=== PATIENT | male | born 2000 | race African-American/Black ===

== ENCOUNTER 2023-11-25 09:20 | Emergency (ER) | payer OTHER ==
[~2023-11-25] VITALS: Ht 193 cm; Wt 95.6 kg
[2023-11-25] MEDS ORDERED: IBUP-1022 PO (11:26)
[2023-11-25 11:52] VITALS: BP 118/65; TEMP 98; O2SAT 100
[2023-11-25 13:32] LABS: Trichomonas vaginalis (AMP) NOT DETECTED (NEGATIVE)
[2023-11-25 13:55] LABS: GC DNA AMPLIFICATION NEGATIVE (NEGATIVE)
== END 2023-11-25 11:53 | disposition home or self-care (01) ==
LOC: M ED 09:20
DX: N50.811 Right testicular pain (principal); N50.812 Left testicular pain; Z79.1 Long term (current) use of non-steroidal anti-inflammatories (NSAID)